=== PATIENT | female | born 1940 | race Caucasian/White ===

== ENCOUNTER → 2018-09-14 | Outpatient (CLI) | payer MEDICARE, BC ==
--- NOTE | 2018-09-16 17:24 | XCELERA REPORT ---
[address] [address] Transthoracic Echocardiogram Report Name: DIANA MCNULTY Age: 78 yrs Gender: Female : 1940 Patient Status: Outpatient Patient Location: [facility] Study Date: 09/14/2018 10:22 AM Height: 61 in Weight: 140 lb BSA: 1.6 m2 Reason For Study: TIA Ordering Physician: NETTE WHITTINGTON Performed By: Brett Moura Interpretation Summary No deinite source of cardiogenic emboli. Mild nonstenotic calcific aortic valvular disease with no AR, no . Mild mitral annular calcifcation, no MS,trace MR with no LA enlargement and no LA myxoma or clot. Mild concentric LVH with LVEF 60% and stage I LV diastolic dysfunction. IVS hypokinetic,incomplete segmental visualization, no LV enlargement. No pulm hypertension, R heart normal, no doppler evidence of ASD. MMode/2D Measurements & Calculations RVDd: 2.3 cm LVIDd: 4.1 cm FS: 31.5 % Ao root diam: 2.8 cm IVSd: 0.98 cm LVIDs: 2.8 cm EDV(Teich): Ao root area: LVPWd: 0.97 cm 75.8 ml ESV(Teich): 6.1 cm2 30.4 ml LA dimension: 2.7 cm EF(Teich): 59.9 % LVLd ap4: 5.6 cm SV(MOD-sp4): EDV(MOD-sp4): 26.0 ml 43.0 ml LVLs ap4: 4.9 cm ESV(MOD-sp4): 17.0 ml EF(MOD-sp4): 60.5 % Doppler Measurements & Calculations MV E max niranjan: MV P1/2t max niranjan: Ao V2 max: LV V1 max P.1 cm/sec 57.7 cm/sec 88.0 cm/sec 2.1 mmHg MV A max niranjan: MV P1/2t: 75.1 msec Ao max PG: LV V1 max: 79.9 cm/sec 3.1 mmHg 72.3 cm/sec MV E/A: 0.80 MVA(P1/2t): 2.9 cm2 MV dec slope: 224.9 cm/sec2 MV dec time: 0.24 sec PA V2 max: PI end-d niranjan: TR max niranjan: MV P1/2t-pr_phl: 69.4 cm/sec 73.7 cm/sec 231.7 cm/sec 75.1 msec PA max PG: TR max P.9 mmHg 21.5 mmHg : NETTE WHITTINGTON Andre
== END ==
LOC: SP 09:27
PROVIDERS: ATTEND Physician Assistant
DX: G45.9 Transient cerebral ischemic attack, unspecified (principal)
CPT/HCPCS: 93306

== ENCOUNTER → 2020-06-14 | Outpatient (CLI) | payer MEDICARE, BC ==
[~2020-06-14] MED LIST: COVID-19 VACCINE (PFIZER)/PF 30 MCG/0.3 ML VIAL IM ONE; EPINEPHRINE INJ/PF 1 MG/1 ML AMPULE IM PRN
== END ==
LOC: EMPHEALTH 11:44
PROVIDERS: ATTEND Internal Medicine
DX: Z23 Encounter for immunization (principal)
CPT/HCPCS: 91300